=== PATIENT | female | born 1960 | race Caucasian/White ===

== ENCOUNTER → 2018-02-19 09:39 | Outpatient (CLI) | payer MEDICARE ==
[2010-09-05 14:23] VITALS: BMI 21.0
== END | disposition home or self-care (01) ==
LOC: D.MRI 09:39
DX: M54.5 Low back pain (principal)

== ENCOUNTER 2019-06-25 07:05 | Day surgery (SDC) | payer MEDICARE ==
[~2019-06-25] VITALS: Ht 165.1 cm; Wt 65.3 kg
[~2019-06-25 07:05] MED LIST: ALBUTEROL SULF8.5 GM INH; HYDROCODON-ACE1 EA10 PO; NEURONTIN 300300 MG PO; PAROXETINE HCL10 MG PO; PROTONIX40 MG PO
[2019-06-25 07:21] LABS: HEMATOCRIT 39.3 % (36.0-48.0); HEMOGLOBIN 13.2 g/dL (12-16); LYMPHOCYTES 24.1 % (15-50); MCH 30.7 pg (26.0-34.0); MCHC 33.6 g/dL (31.0-37.0); MCV 91.4 fL (80.0-100.0); MEAN PLATELET VOLUME 10.2 fL (7.4-10.4); NEUTROPHILS 63.8 % (40-80); PLATELET COUNT 173 10x3/uL (130-400); RDW 12.8 % (11.5-14.5); WBC 6.6 10x3/uL (4.8-10.8)
[2019-06-25 07:51] LABS: ALBUMIN 3.7 g/dL (3.4-5.0); ANION GAP 12.3 mmol/L (8-16); BILIRUBIN - TOTAL 0.51 mg/dL (0.2-1.3); CALCIUM 9.1 mg/dL (8.5-10.1); CARBON DIOXIDE 25.4 mmol/L (21.0-32.0); POTASSIUM - SERUM 4.7 mmol/L (3.5-5.1); PROTEIN - SERUM 7.8 g/dL (6.4-8.2)
[2019-06-25 07:53] LABS: APTT 31.8 SECONDS (22.8-39.4); INR 1.03 (0.85-1.17)
[2019-06-25 08:15] VITALS: BP 103/63; Ht 165.1 cm; Wt 65.3 kg
[2019-06-25] MEDS ORDERED: ROXICODONE15 MG PO (10:08)
--- NOTE | 2019-07-06 13:37 | OP ---
PATIENT NAME: SRIKANTH MALDONADO MEDICAL RECORD: [id number] :64 LOCATION:D.OPS ADMISSION DATE: SURGEON: RON SOLANO MD DATE OF OPERATION: 06/25/2019 PREOPERATIVE DIAGNOSES: 1. Bleeding internal hemorrhoids. 2. Anal skin tags. POSTOPERATIVE DIAGNOSES: 1. Bleeding internal hemorrhoids. 2. Anal skin tags. PROCEDURE: 1. PPH stapled hemorrhoidectomy. 2. Excision of anal skin tags times 4. SURGEON: Ron Solano MD REPORT OF PROCEDURE: The patient was placed in the jackknife prone position and the perianal region was prepped and draped in sterile fashion. An anoscope was inserted and a 360 degree inspection was performed. The patient did have some internal hemorrhoids with one being present on the right posterior side, which appeared to be quite friable. We eventually inserted the PPH anoscope and sutured this down to the skin with 3-0 silks. We placed a 2-0 Prolene in a pursestring fashion inside the distal rectum. We then inserted the PPH stapler. The pursestring was brought up tightly around the stapler and the stapler was tightened around the tissue. We felt through the posterior vaginal wall and did not feel any tethering of the tissue. We fired the stapler and removed a large ring of tissue. We inspected the staple line and could see there was some bleeding anteriorly and this was oversewn with 2-0 chromics. There was no evidence of any bleeding following this. We irrigated out the anal region with normal saline. Once we took the anoscope out, then we could see that the patient still had some redundant hemorrhoid tissue present. Most of these were pedunculated in nature. We went ahead and just excised these at their base using electrocautery and left the wounds open. We then treated the wounds with Americaine topical gel. COMPLICATIONS: None. CONDITION: Stable. ANESTHESIA: General endotracheal. BLOOD LOSS: Minimal. TRANSINT:[id number] Voice Confirmation ID: [id number] DOCUMENT ID: [id number] OPERATIVE REPORT [id number] SRIKANTH MALDONADO RON SOLANO MD at 1332 CC: [id number] DICTATION DATE: 06/25/19 1123 ROOFER METAL: 06/25/19 1136 [facility] 06/25/19 [facility] [address] [id number]
== END 2019-06-25 12:00 | disposition home or self-care (01) ==
LOC: D.OPS 07:05
PROVIDERS: Anesthesiology; ATTEND Surgery
DX: K64.8 Other hemorrhoids (principal); K64.4 Residual hemorrhoidal skin tags

== ENCOUNTER 2021-01-22 13:19 | Emergency (ER) | payer OTHER, MEDICAID ==
[~2021-01-22] VITALS: Ht 165.1 cm; Wt 55.5 kg
[~2021-01-22 13:19] MED LIST changes: +CARAFATE1 G PO; +FLORASTOR250 MG PO; +PEPCID40 MG PO; +ROXICODONE15 MG PO; +ZOFRAN ODT4 MG/UDTAB PO
[2021-01-22 13:41] VITALS: Ht 165.1 cm; Wt 55.5 kg
[2021-01-22 13:53] VITALS: BP 120/73
[2021-01-22] MEDS ORDERED: ULTRAM50 MG PO (15:41)
[2021-01-22] MEDS ORDERED: NAPROSYN500 MG PO (15:41)
== END 2021-01-22 15:56 | disposition home or self-care (01) ==
LOC: D.ER 13:19
DX: M25.552 Pain in left hip (principal); S70.02XA Contusion of left hip, initial encounter; X58.XXXA Exposure to other specified factors, initial encounter; J44.9 Chronic obstructive pulmonary disease, unspecified; K21.9 Gastro-esophageal reflux disease without esophagitis